=== PATIENT | female | born 1945 | race Caucasian/White ===

== ENCOUNTER 2016-11-08 13:28 | Emergency (ER) | payer OTHER ==
[~2016-11-08] VITALS: Ht 162.6 cm; Wt 66.0 kg
[~2016-11-08 13:28] MED LIST: CALC600T34 PO; CETI10 PO; ESTR1TAB12 PO; LISI-363 PO; MEDR2.5T19 PO; PRAV20 PO; PROBCAP28 PO; VITA100020 PO; VITA200017 PO
[2016-11-08 13:40] VITALS: BP 137/85; PULSE 88; RESP 16; TEMP 98.2; O2SAT 98
[2016-11-08] MEDS ORDERED: VITA100064 PO (14:13)
[2016-11-08] MEDS ORDERED: CYAN1TAB24 PO (14:13)
[2016-11-08] MEDS ORDERED: PRAV20TA2 PO (14:13)
[2016-11-08] MEDS ORDERED: CALC600T25 PO (14:13)
[2016-11-08] MEDS ORDERED: LACTCAP8 PO (14:13)
[2016-11-08] MEDS ORDERED: BUSP10TA PO (14:13)
[2016-11-08] MEDS ORDERED: LISI-515 PO (14:13)
[2016-11-08 14:38] LABS: BASOPHIL % 0.4 % (0.0-2.0); EOSINOPHIL # 0.1 TH/MM3 (0-0.4); EOSINOPHIL % 0.9 % (0.0-4.0); HEMATOCRIT 41.5 % (35.0-46.0); LYMPH % 9.6 % (9.0-44.0); LYMPHOCYTE # 0.7 TH/MM3 (1.0-4.8); MEAN CORPUSCULAR HEMOGLOBIN 31.3 PG (27.0-34.0); MONO % 7.1 % (0.0-8.0); PLATELET COUNT 209 TH/MM3 (150-450); RED BLOOD COUNT 4.51 MIL/MM3 (4.00-5.30); WHITE BLOOD COUNT 7.3 TH/MM3 (4.0-11.0)
--- NOTE | 2016-11-08 14:43 | PD ---
HPI Chief Complaint: Hypertension Time Seen by Provider: 14:21 Travel History International Travel<30 days: No Contact w/Intl Traveler<30days: No Traveled to known affect area: No History of Present Illness HPI PATIENT HAS BEEN FEELING LIGHTHEADED FOR DAYS , DENIES MAURO/CP/ABD PAIN/N/V/D/ COUGH/URI SX....STATES THAT LIGHTHEADEDNESS IS WORSE WHENEVER SHE STANDS UP. PFSH Past Medical History Anxiety: Yes Cardiovascular Problems: Yes (HTN) High Cholesterol: Yes Diminished Hearing: No Hypertension: Yes Kidney Stones: Yes Tetanus Vaccination: > 5 Years Influenza Vaccination: Yes ?: Not Menopausal: Yes : 2 Para: 2 Tubal Ligation: Yes Past Surgical History Section: Yes (X's 2) Other Surgery: Yes (RIGHT EAR PINNED BACK, BLEPHERECTOMY: BILATERAL) Social History Alcohol Use: No Tobacco Use: No Substance Use: No Allergies-Medications (Allergen,Severity, Reaction): Coded Allergies: No Known Allergies (Verified , 11/08/16) Reported Meds & Prescriptions Reported Meds & Active Scripts Active Reported Buspirone (Buspirone HCl) 10 Mg Tab 10 Mg PO BID PRN Calcium (Calcium Carbonate) 600 Mg Tab 1 Tab PO BID Probiotic (Lactobacillus Acidophilus) 1 Cap Cap 1 Cap PO DAILY B12 (Cyanocobalamin) 1,000 Mcg Tab 1 Tab PO DIRECTED Vitamin D (Cholecalciferol) 1,000 Unit Tab 2,000 Units PO DIRECTED Pravastatin 20 Mg Tab 20 Mg PO DAILY Lisinopril 20 Mg Tab 20 Mg PO DAILY Review of Systems Except as stated in HPI: all other systems reviewed are Neg HENT: Positive: Lightheadedness Physical Exam Narrative GENERAL: SKIN: Warm and dry. HEAD: Atraumatic. Normocephalic. EYES: Pupils equal and round. No scleral icterus. No injection or drainage. LATERAL FATIGUING NYSTAGMUS NOTED ENT: No nasal bleeding or discharge. Mucous membranes pink and moist. BILATERAL TM EFFUSION NOTED WITHOUT ANY E/O INFECTION NECK: Trachea midline. No JVD. CARDIOVASCULAR: Regular rate and rhythm. RESPIRATORY: No accessory muscle use. Clear to auscultation. Breath sounds equal bilaterally. GASTROINTESTINAL: Abdomen soft, non-tender, nondistended. Hepatic and splenic margins not palpable. MUSCULOSKELETAL: Extremities without clubbing, cyanosis, or edema. No obvious deformities. NEUROLOGICAL: Awake and alert. No obvious cranial nerve deficits. Motor grossly within normal limits. Five out of 5 muscle strength in the arms and legs. Normal speech. PSYCHIATRIC: Appropriate mood and affect; insight and judgment normal. Data Data Last Documented VS Vital Signs Date Time Temp Pulse Resp B/P Pulse Ox O2 Delivery O2 Flow Rate FiO2 11/08/16 15:14 85 16 145/71 98 Room Air 11/08/16 13:40 98.2 Orders Electrocardiogram (11/08/16 14:21) Complete Blood Count With Diff (11/08/16 14:21) Basic Metabolic Panel (Bmp) (11/08/16 14:21) Troponin I (11/08/16 14:21) B-Type Natriuretic Peptide (11/08/16 14:21) Prothrombin Time / Inr (Pt) (11/08/16 14:21) Act Partial Throm Time (Ptt) (11/08/16 14:21) Lipase (11/08/16 14:21) Thyroid Stimulating Hormone (11/08/16 14:21) Chest, Single Ap (11/08/16 14:21) Urinalysis - C+S If Indicated (11/08/16 15:31) Labs Laboratory Tests Test 11/08/16 11/08/16 14:30 15:30 White Blood Count 7.3 TH/MM3 Red Blood Count 4.51 MIL/MM3 Hemoglobin 14.1 GM/DL Hematocrit 41.5 % Mean Corpuscular Volume 92.0 FL Mean Corpuscular Hemoglobin 31.3 PG Mean Corpuscular Hemoglobin 34.0 % Concent Red Cell Distribution Width 12.0 % Platelet Count 209 TH/MM3 Mean Platelet Volume 7.5 FL Neutrophils (%) (Auto) 82.0 % Lymphocytes (%) (Auto) 9.6 % Monocytes (%) (Auto) 7.1 % Eosinophils (%) (Auto) 0.9 % Basophils (%) (Auto) 0.4 % Neutrophils # (Auto) 6.0 TH/MM3 Lymphocytes # (Auto) 0.7 TH/MM3 Monocytes # (Auto) 0.5 TH/MM3 Eosinophils # (Auto) 0.1 TH/MM3 Basophils # (Auto) 0.0 TH/MM3 CBC Comment DIFF FINAL Differential Comment Prothrombin Time 12.8 SEC Prothromb Time International 1.2 RATIO Ratio Activated Partial 30.1 SEC Thromboplast Time Sodium Level 144 MEQ/L Potassium Level 3.5 MEQ/L Chloride Level 108 MEQ/L Carbon Dioxide Level 27.5 MEQ/L Anion Gap 9 MEQ/L Blood Urea Nitrogen 9 MG/DL Creatinine 0.61 MG/DL Estimat Glomerular Filtration 97 ML/MIN Rate Random Glucose 88 MG/DL Calcium Level 9.0 MG/DL Troponin I LESS THAN 0.02 NG/ML B-Type Natriuretic Peptide 11 PG/ML Lipase 127 U/L Thyroid Stimulating Hormone 0.648 uIU/ML 3rd Gen Urine Collection Type CLEAN CATCH Urine Color STRAW Urine Turbidity CLEAR Urine pH 6.5 Urine Specific [place] 1.003 Urine Protein NEG mg/dL Urine Glucose (UA) NEG mg/dL Urine Ketones TRACE mg/dL Urine Occult Blood SMALL Urine Nitrite NEG Urine Bilirubin NEG Urine Leukocyte Esterase NEG Urine WBC 0-2 /hpf Urine Squamous Epithelial 0-5 /hpf Cells Microscopic Urinalysis Comment CULT NOT INDICATED MDM Medical Decision Making Medical Screen Exam Complete: Yes Emergency Medical Condition: Yes Medical Record Reviewed: Yes Differential Diagnosis ANEMIA V DEHYDRATION V VERTIGO EAR SOURCE Narrative Course NO E/O DEHYDRATION, ELECTROLYTE DISTURBANCE OR ANEMIA ON EVALUATION. PT IS NOW CALMER AND BP HAVE BEEN WNL WELL. Diagnosis Primary Impression: VERTIGO DUE TO EAR EFFUSION Referrals: Chilo Arroyo MD Patient Instructions: Benign Paroxysmal Positional Vertigo (ED), General Instructions Additional Instructions: PLEASE USE PLAIN MUCINEX OVER THE COUNTER DAILY FOR ABOUT 7 DAYS AND USE THE STRAW TECHNIQUE TO ATTEMPT AND NATURALLY DRAIN YOUR MIDDLE EAR FROM FLUID AND THIS SHOULD IMPROVE YOUR LIGHTHEADEDNESS. ALSO MAKE APPOINTMENT WITH DR ARROYO ( ENT) FOR FURTHER CARE Disposition: 01 DISCHARGE HOME Condition: Stable Karlos Quan MD Nov 08, 2016 14:43
[2016-11-08 14:44] LABS: HEMO FLAGS DIFF FINAL
[2016-11-08 14:46] LABS: CHLORIDE 108 MEQ/L (98-107); POTASSIUM 3.5 MEQ/L (3.5-5.1); SODIUM (NA) 144 MEQ/L (136-145)
[2016-11-08 14:49] LABS: ANION GAP 9 MEQ/L (5-15); BICARBONATE 27.5 MEQ/L (21.0-32.0); BLOOD UREA NITROGEN 9 MG/DL (7-18)
[2016-11-08 14:52] LABS: APTT (PATIENT) 30.1 SEC (24.3-30.1); GLOMERULAR FILTRATION RATE 97 ML/MIN (>89); INTERNATIONAL NORMALIZED RATIO 1.2 RATIO; PROTHROMBIN TIME - PATIENT 12.8 SEC (9.8-11.6)
--- NOTE | 2016-11-08 14:52 | RADRPT ---
EXAM DATE/TIME: 11/08/2016 14:37 [facility] COMPARISON: No previous studies available for comparison. INDICATIONS : Palpitations, high BP, tingling down both arms MEDICAL HISTORY : Hypertension. SURGICAL HISTORY : None. ENCOUNTER: Initial ACUITY: 1 month PAIN SCORE: 0/10 LOCATION: Bilateral chest FINDINGS: A single view of the chest demonstrates the lungs to be symmetrically aerated without evidence of mas s, infiltrate or effusion. The cardiomediastinal contours are unremarkable. Osseous structures are intact. CONCLUSION: No acute disease. Gavin Sanchez MD on November 08, 2016 at 14:50 Board Certified Radiologist. This report was verified electronically.
[2016-11-08 15:14] VITALS: BP 145/71; PULSE 85; RESP 16; O2SAT 98
[2016-11-08 15:40] LABS: BLOOD, URINE SMALL (NEG); GLUCOSE,URINE NEG (NEG); KETONE, URINE TRACE mg/dL (NEG); NITRITE,URINE NEG (NEG); PH, URINE 6.5 (5.0-8.5)
[2016-11-08 15:41] LABS: METHOD OF COLLECTION CLEAN CATCH; URINE COLOR STRAW (YELLW/STRAW)
[2016-11-08 15:45] LABS: COMMENT (UR) CULT NOT INDICATED; CULTURE IF INDICATED CULT NOT INDICATED; SQUAMOUS EPITHELIAL CELL URINE 0-5 /hpf (0-5); WBC, URINE 0-2 /hpf (0-5)
--- NOTE | 2016-11-09 11:52 | EKG ---
Date Performed: 11/08/2016 Time Performed: 14:48:50 PTAGE: 71 years EKG: Sinus rhythm Since previous tracing, no significant change noted NORMAL ECG PREVIOUS TRACING : 03/13/2016 01.01 DOCTOR: Osiel Watt Interpretating Date/Time 11/09/2016 11:50:18
== END 2016-11-08 16:04 | disposition home or self-care (01) ==
LOC: PHED 13:28
DX: H92.13 Otorrhea, bilateral (principal); I10 Essential (primary) hypertension; R42 Dizziness and giddiness
CPT/HCPCS: 71010; 80048; 81001; 83690; 83880; 84443; 84484; 85025; 85610; 85730; 93005; 99285

== ENCOUNTER 2016-11-16 20:28 | Emergency (ER) | payer OTHER ==
[~2016-11-16 20:28] MED LIST changes: +BUSP10TA PO; +CALC600T25 PO; -CALC600T34 PO; -CETI10 PO; +CYAN1TAB24 PO; -ESTR1TAB12 PO; +LACTCAP8 PO; -LISI-363 PO; +LISI-515 PO; -MEDR2.5T19 PO; -PRAV20 PO; +PRAV20TA2 PO; -PROBCAP28 PO; -VITA100020 PO; +VITA100064 PO; -VITA200017 PO
[2016-11-16 20:41] VITALS: BP 188/78; PULSE 120; RESP 18; TEMP 98.5; O2SAT 97
[2016-11-16 20:43] VITALS: BP 161/83; PULSE 117; O2SAT 95
[2016-11-16] MEDS ORDERED: AMOX500C PO (20:50)
[2016-11-16] MEDS ORDERED: PRED10 PO (20:50)
--- NOTE | 2016-11-16 20:58 | PD ---
HPI Chief Complaint: Cardiac Complaint Time Seen by Provider: 20:47 Travel History International Travel<30 days: No Contact w/Intl Traveler<30days: No Traveled to known affect area: No History of Present Illness HPI 71-year-old female here for evaluation of tachycardia, palpitations, tingling in her arms, feeling anxious. Patient reports that for the last month she has been having intermittent episodes of dizziness. She has been taking Mucinex for the last week for possible ear effusion. She went to an urgent care facility yesterday and was started on a Z-Lele and amoxicillin. The patient was also instructed to take Sudafed which she has not done. She denies fevers or chills. No chest pain or dyspnea. She does admit to feeling somewhat anxious. PFSH Past Medical History Anxiety: Yes Cardiovascular Problems: Yes (HTN) High Cholesterol: Yes Diminished Hearing: No Hypertension: Yes Kidney Stones: Yes Immunizations Current: Yes (SHINGLES 2014) Tetanus Vaccination: < 5 Years Influenza Vaccination: Yes ?: Not Menopausal: Yes : 2 Para: 2 Tubal Ligation: Yes Past Surgical History Section: Yes (X's 2) Other Surgery: Yes (RIGHT EAR PINNED BACK, BLEPHERECTOMY: BILATERAL) Social History Alcohol Use: No Tobacco Use: No Substance Use: No Allergies-Medications (Allergen,Severity, Reaction): Coded Allergies: No Known Allergies (Verified , 11/16/16) Reported Meds & Prescriptions Reported Meds & Active Scripts Active Reported Prednisone 10 Mg Tab 10 Mg PO DAILY Amoxicillin 500 Mg Cap 500 Mg PO BID Buspirone (Buspirone HCl) 10 Mg Tab 10 Mg PO BID PRN Calcium (Calcium Carbonate) 600 Mg Tab 1 Tab PO BID Probiotic (Lactobacillus Acidophilus) 1 Cap Cap 1 Cap PO DAILY B12 (Cyanocobalamin) 1,000 Mcg Tab 1 Tab PO DIRECTED Vitamin D (Cholecalciferol) 1,000 Unit Tab 2,000 Units PO DIRECTED Pravastatin 20 Mg Tab 20 Mg PO DAILY Lisinopril 20 Mg Tab 20 Mg PO DAILY Review of Systems Except as stated in HPI: all other systems reviewed are Neg Physical Exam Narrative GENERAL: Well-developed, well-nourished, comfortable, no acute distress. SKIN: Focused skin assessment warm/dry. No rash. No pallor. HEAD: Atraumatic. Normocephalic. EYES: Pupils equal and round. No scleral icterus. No injection or drainage. ENT: Mucous membranes pink and dry. Bilateral tympanic membranes and external auditory canals are normal. NECK: Trachea midline. No JVD. CARDIOVASCULAR: Tachycardic, rate 120, regular. RESPIRATORY: No accessory muscle use. Clear to auscultation. Breath sounds equal bilaterally. GASTROINTESTINAL: Abdomen soft, non-tender, nondistended. MUSCULOSKELETAL: No obvious deformities. No clubbing. No cyanosis. No edema. NEUROLOGICAL: Awake and alert. No obvious cranial nerve deficits. Motor grossly within normal limits. Normal speech. PSYCHIATRIC: Appropriate mood and affect; insight and judgment normal. Data Data Last Documented VS Vital Signs Date Time Temp Pulse Resp B/P Pulse Ox O2 Delivery O2 Flow Rate FiO2 11/16/16 22:10 92 16 97 Room Air 11/16/16 21:36 138/70 11/16/16 20:41 98.5 Orders Electrocardiogram (11/16/16 20:55) Ckmb (Isoenzyme) Profile (11/16/16 20:55) Complete Blood Count With Diff (11/16/16 20:55) Comprehensive Metabolic Panel (11/16/16 20:55) Magnesium (Mg) (11/16/16 20:55) Prothrombin Time / Inr (Pt) (11/16/16 20:55) Act Partial Throm Time (Ptt) (11/16/16 20:55) Troponin I (11/16/16 20:55) Chest, Single Ap (11/16/16 20:55) Ecg Monitoring (11/16/16 20:55) Iv Access Insert/Monitor (11/16/16 20:55) Oximetry (11/16/16 20:55) Sodium Chloride 0.9% Flush (Ns Flush) (11/16/16 21:00) Sodium Chlor 0.9% 1000 Ml Inj (Ns 1000 M (11/16/16 21:00) Lorazepam Inj (Ativan Inj) (11/16/16 21:00) Thyroid Stimulating Hormone (11/16/16 21:38) Free Thyroxine (T4) (11/16/16 21:38) Labs Laboratory Tests Test 11/16/16 20:55 White Blood Count 11.5 TH/MM3 Red Blood Count 4.52 MIL/MM3 Hemoglobin 14.2 GM/DL Hematocrit 42.4 % Mean Corpuscular Volume 93.8 FL Mean Corpuscular Hemoglobin 31.5 PG Mean Corpuscular Hemoglobin 33.5 % Concent Red Cell Distribution Width 12.5 % Platelet Count 230 TH/MM3 Mean Platelet Volume 8.4 FL Neutrophils (%) (Auto) 87.7 % Lymphocytes (%) (Auto) 6.3 % Monocytes (%) (Auto) 5.3 % Eosinophils (%) (Auto) 0.4 % Basophils (%) (Auto) 0.3 % Neutrophils # (Auto) 10.2 TH/MM3 Lymphocytes # (Auto) 0.7 TH/MM3 Monocytes # (Auto) 0.6 TH/MM3 Eosinophils # (Auto) 0.0 TH/MM3 Basophils # (Auto) 0.0 TH/MM3 CBC Comment DIFF FINAL Differential Comment Prothrombin Time 11.6 SEC Prothromb Time International 1.0 RATIO Ratio Activated Partial 26.8 SEC Thromboplast Time Sodium Level 143 MEQ/L Potassium Level 3.6 MEQ/L Chloride Level 108 MEQ/L Carbon Dioxide Level 24.9 MEQ/L Anion Gap 10 MEQ/L Blood Urea Nitrogen 16 MG/DL Creatinine 0.91 MG/DL Estimat Glomerular Filtration 61 ML/MIN Rate Random Glucose 188 MG/DL Calcium Level 9.0 MG/DL Magnesium Level 2.2 MG/DL Total Bilirubin 0.5 MG/DL Aspartate Amino Transf 13 U/L (AST/SGOT) Alanine Aminotransferase 19 U/L (ALT/SGPT) Alkaline Phosphatase 48 U/L Total Creatine Kinase 50 U/L Troponin I LESS THAN 0.02 NG/ML Total Protein 7.0 GM/DL Albumin 3.8 GM/DL Thyroid Stimulating Hormone 0.482 uIU/ML [address] [place] [address] Medical Decision Making Medical Screen Exam Complete: Yes Emergency Medical Condition: Yes Medical Record Reviewed: Yes Interpretation(s) EKG: Sinus, rate 94, normal axis, normal intervals, no acute ischemic abnormality. Differential Diagnosis Sinus tachycardia, dehydration, anxiety, medication side effect, hyperthyroidism , anemia Narrative Course Initial vital signs show heart rate 120, blood pressure 188/70, pulse ox 97% on room air, oral temp of 98.5F. CBC shows WBC 11.5, hemoglobin 14.2, hematocrit 42.4, platelets 230, neutrophils 87.7%. CMP is remarkable for random glucose 188, otherwise essentially unremarkable. Cardiac enzymes are negative. TSH is 0.482. Patient was made aware of all findings. She is resting comfortably. She was given a dose of IV Ativan and reports feeling significant improvement. Her heart rate has improved to 91. She had no chest pain or dyspnea at all today. Her symptoms could also be secondary to beginning oral prednisone yesterday as well as her anxiety. She denies suicidal or homicidal ideation. Patient will be discharged home with a prescription for Ativan. She has a follow-up with her primary care physician in 4 days. She is stable for discharge home with outpatient follow-up. She was informed on when to return to the emergency department patient verbalizes understanding and agreement with plan. Diagnosis Primary Impression: Anxiety Additional Impression: Sinus tachycardia Referrals: Primary Care Physician 3 days Additional Instructions: Follow-up with your primary care physician as scheduled on . Return to the emergency department for worsening symptoms or any other concerns as discussed. Scripts Lorazepam (Ativan)0.5 Mg Tab0.5 Mg PO Q8H PRN (ANXIETY AND/OR AGITATION) #12 TAB Ref 0 Prov:Kendall Billingsley MD 11/16/16 Disposition: 01 DISCHARGE HOME Condition: Stable Kendall Billingsley MD Nov 16, 2016 20:58
[2016-11-16] MEDS ORDERED: SODIUM CHLOR 0.9% 1000 ML INJ 1,000 ML IV ONE (21:00)
[2016-11-16] MEDS ORDERED: SODIUM CHLORIDE 0.9% FLUSH 10 ML FLUSH IVF PRN (21:00)
[2016-11-16] MEDS ORDERED: LORazepam 2 MG/ML VIAL IV PUSH ONE (21:00)
[2016-11-16 21:19] LABS: AUTOMATED NEUTROPHIL # 10.2 TH/MM3 (1.8-7.7); BASOPHIL % 0.3 % (0.0-2.0); EOSINOPHIL % 0.4 % (0.0-4.0); HEMATOCRIT 42.4 % (35.0-46.0); LYMPH % 6.3 % (9.0-44.0); LYMPHOCYTE # 0.7 TH/MM3 (1.0-4.8); MEAN CELL VOLUME 93.8 FL (80.0-100.0); MEAN CORPUSCULAR HEMOGLOBIN 31.5 PG (27.0-34.0); MEAN CORPUSCULAR HGB CONC 33.5 % (32.0-36.0); MONO % 5.3 % (0.0-8.0); NEUT % 87.7 % (16.0-70.0); PLATELET COUNT 230 TH/MM3 (150-450); RED BLOOD COUNT 4.52 MIL/MM3 (4.00-5.30); RED CELL DISTRIBUTION WIDTH 12.5 % (11.6-17.2); WHITE BLOOD COUNT 11.5 TH/MM3 (4.0-11.0)
--- NOTE | 2016-11-16 21:24 | RADRPT ---
EXAM DATE/TIME: 11/16/2016 20:59 [facility] COMPARISON: CHEST SINGLE AP, November 08, 2016, 14:37. INDICATIONS : Chest pain. MEDICAL HISTORY : Hypertension. SURGICAL HISTORY : None. ENCOUNTER: Initial ACUITY: 1 day PAIN SCORE: 3/10 LOCATION: Bilateral chest FINDINGS: A single view of the chest demonstrates the lungs to be symmetrically aerated without evidence of mas s, infiltrate or effusion. The cardiomediastinal contours are unremarkable. Osseous structures are intact. CONCLUSION: No acute disease. Gavin Sanchez MD on November 16, 2016 at 21:21 Board Certified Radiologist. This report was verified electronically.
[2016-11-16 21:27] LABS: CHLORIDE 108 MEQ/L (98-107); POTASSIUM 3.6 MEQ/L (3.5-5.1); SODIUM (NA) 143 MEQ/L (136-145)
[2016-11-16 21:28] LABS: HEMO FLAGS DIFF FINAL
[2016-11-16 21:31] LABS: ANION GAP 10 MEQ/L (5-15); BICARBONATE 24.9 MEQ/L (21.0-32.0); BLOOD UREA NITROGEN 16 MG/DL (7-18); MAGNESIUM 2.2 MG/DL (1.5-2.5)
[2016-11-16 21:34] LABS: ALT (GPT) 19 U/L (10-53); APTT (PATIENT) 26.8 SEC (24.3-30.1); AST (GOT) 13 U/L (15-37); GLOMERULAR FILTRATION RATE 61 ML/MIN (>89); PROTHROMBIN TIME - PATIENT 11.6 SEC (9.8-11.6)
[2016-11-16 21:35] LABS: TOTAL BILIRUBIN ADULT 0.5 MG/DL (0.2-1.0)
[2016-11-16 21:36] VITALS: BP 138/70; PULSE 96; RESP 16; O2SAT 95
[2016-11-16 21:37] LABS: ALKALINE PHOSPHATASE 48 U/L (45-117)
[2016-11-16 21:42] LABS: CREATINE KINASE 50 U/L (26-192)
[2016-11-16 22:10] VITALS: PULSE 92; RESP 16; O2SAT 97
[2016-11-16] MEDS ORDERED: LORA-392 PO (22:40)
[2016-11-16 23:06] VITALS: BP 132/70; PULSE 87; RESP 16; O2SAT 99
[2016-11-16 23:28] LABS: FREE T4 1.05 NG/DL (0.76-1.46)
--- NOTE | 2016-11-17 14:37 | EKG ---
Date Performed: 11/16/2016 Time Performed: 21:19:09 PTAGE: 71 years EKG: Sinus rhythm Since previous tracing, no significant change noted NORMAL ECG PREVIOUS TRACING : 11/08/2016 14.48 DOCTOR: Myles Hines Interpretating Date/Time 11/17/2016 14:35:43
== END 2016-11-16 23:12 | disposition home or self-care (01) ==
LOC: PHED 20:28
DX: F41.9 Anxiety disorder, unspecified (principal); R00.0 Tachycardia, unspecified; R00.2 Palpitations; R20.2 Paresthesia of skin; I10 Essential (primary) hypertension; E78.00 Pure hypercholesterolemia, unspecified; Z86.79 Personal history of other diseases of the circulatory system; Z87.442 Personal history of urinary calculi; Z86.59 Personal history of other mental and behavioral disorders
CPT/HCPCS: 71010; 80053; 82550; 83735; 84439; 84443; 84484; 85025; 85610; 85730; 93005; 96361; 96374; 99285; J2060; J7030

== ENCOUNTER 2017-02-16 20:17 | Emergency (ER) | payer OTHER ==
[~2017-02-16] VITALS: Ht 162.6 cm; Wt 67.1 kg
[~2017-02-16 20:17] MED LIST changes: +AMOX500C PO; +LORA-392 PO; +PRED10 PO
[2017-02-16 20:19] VITALS: BP 188/86; PULSE 125; RESP 18; TEMP 97.5; O2SAT 98
[2017-02-16 20:40] VITALS: BP 188/86; PULSE 125; RESP 18; TEMP 97.5; O2SAT 98
[2017-02-16 21:00] VITALS: BP_SYST 155; BP_SYST 166; BP_DIAS 74; BP_DIAS 85
[2017-02-16] MEDS ORDERED: SODIUM CHLORIDE 0.9% FLUSH 10 ML FLUSH IVF PRN (21:00)
[2017-02-16] MEDS ORDERED: ASPIRIN 81 MG CHEW TAB CHEW ONE (21:00)
[2017-02-16 21:41] VITALS: BP 135/72; PULSE 101; RESP 20
[2017-02-16 21:41] LABS: AUTOMATED NEUTROPHIL # 9.6 TH/MM3 (1.8-7.7); BASOPHIL % 0.4 % (0.0-2.0); EOSINOPHIL # 0.1 TH/MM3 (0-0.4); EOSINOPHIL % 1.3 % (0.0-4.0); HEMATOCRIT 41.7 % (35.0-46.0); HEMO FLAGS DIFF FINAL; LYMPHOCYTE # 0.4 TH/MM3 (1.0-4.8); MEAN CELL VOLUME 90.6 FL (80.0-100.0); MEAN CORPUSCULAR HEMOGLOBIN 30.7 PG (27.0-34.0); MEAN CORPUSCULAR HGB CONC 33.9 % (32.0-36.0); MONO % 5.7 % (0.0-8.0); NEUT % 88.6 % (16.0-70.0); PLATELET COUNT 231 TH/MM3 (150-450); RED CELL DISTRIBUTION WIDTH 12.2 % (11.6-17.2); WHITE BLOOD COUNT 10.7 TH/MM3 (4.0-11.0)
[2017-02-16 21:57] LABS: CHLORIDE 103 MEQ/L (98-107); POTASSIUM 3.7 MEQ/L (3.5-5.1); SODIUM (NA) 137 MEQ/L (136-145)
[2017-02-16 22:00] LABS: ANION GAP 8 MEQ/L (5-15); BICARBONATE 26.5 MEQ/L (21.0-32.0); MAGNESIUM 2.3 MG/DL (1.5-2.5)
[2017-02-16 22:01] LABS: BLOOD UREA NITROGEN 17 MG/DL (7-18)
[2017-02-16 22:03] LABS: APTT (PATIENT) 30.8 SEC (24.3-30.1); PROTHROMBIN TIME - PATIENT 11.4 SEC (9.8-11.6)
[2017-02-16 22:04] LABS: GLOMERULAR FILTRATION RATE 83 ML/MIN (>89)
[2017-02-16 22:16] LABS: CREATINE KINASE 49 U/L (26-192)
--- NOTE | 2017-02-16 22:18 | RADRPT ---
EXAM DATE/TIME: 02/16/2017 21:06 [facility] COMPARISON: CHEST SINGLE AP, November 16, 2016, 20:59. INDICATIONS : Chest pain. MEDICAL HISTORY : Hypertension. SURGICAL HISTORY : None. ENCOUNTER: Initial ACUITY: 1 day PAIN SCORE: 3/10 LOCATION: Bilateral chest FINDINGS: A single view of the chest demonstrates the lungs to be symmetrically aerated without evidence of mas s, infiltrate or effusion. The cardiomediastinal contours are unremarkable. Osseous structures are intact. CONCLUSION: Normal examination. Gavin Sanchez MD on February 16, 2017 at 22:17 Board Certified Radiologist. This report was verified electronically.
--- NOTE | 2017-02-16 23:20 | PD ---
HPI Chief Complaint: Cardiac Complaint Time Seen by Provider: 21:00 Travel History International Travel<30 days: No Contact w/Intl Traveler<30days: No Traveled to known affect area: No History of Present Illness HPI 71-year-old female presents to the emergency department for complaint of palpitations and heart racing. Patient states that she has a prescription for muscle relaxant use muscle relaxant last night. Shortly after using muscle relaxant she went to bed but felt slightly weak and then awakened this morning feeling weak with palpitations. Patient also noted to have lightheadedness. Patient did take for evening medications and morning medications for cholesterol and hypertension. Due to ongoing sensation of fast heartbeat and palpitations patient states became anxious and took a Klonopin. Symptoms did not seem temperature comes to the emergency room for evaluation. No chest pain no shortness of breath no sweats no near-syncope or syncope. Patient denies any abdominal pain. No recent febrile illness. Patient unable to identify exacerbating or alleviating factors. PFSH Past Medical History Narrative Medical Hypertension dyslipidemia anxiety kidney stones shingles ear surgery; no tobacco use alcohol use; nursing notes reviewed Anxiety: Yes Cardiovascular Problems: Yes (HTN) High Cholesterol: Yes Diminished Hearing: No Hypertension: Yes Kidney Stones: Yes Immunizations Current: Yes (SHIN2014) Tetanus Vaccination: Unknown Menopausal: Yes : 2 Para: 2 Tubal Ligation: Yes Past Surgical History Surgical History: No Previous Surgery Section: Yes (X's 2) Other Surgery: Yes (RIGHT EAR PINNED BACK, BLEPHERECTOMY: BILATERAL) Social History Alcohol Use: No Tobacco Use: No Substance Use: No Allergies-Medications (Allergen,Severity, Reaction): Coded Allergies: No Known Allergies (Verified , 11/16/16) Reported Meds & Prescriptions Reported Meds & Active Scripts Active Ativan (Lorazepam) 0.5 Mg Tab 0.5 Mg PO Q8H PRN Reported Prednisone 10 Mg Tab 10 Mg PO DAILY Amoxicillin 500 Mg Cap 500 Mg PO BID Buspirone (Buspirone HCl) 10 Mg Tab 10 Mg PO BID PRN Calcium (Calcium Carbonate) 600 Mg Tab 1 Tab PO BID Probiotic (Lactobacillus Acidophilus) 1 Cap Cap 1 Cap PO DAILY B12 (Cyanocobalamin) 1,000 Mcg Tab 1 Tab PO DIRECTED Vitamin D (Cholecalciferol) 1,000 Unit Tab 2,000 Units PO DIRECTED Pravastatin 20 Mg Tab 20 Mg PO DAILY Lisinopril 20 Mg Tab 20 Mg PO DAILY Review of Systems Except as stated in HPI: all other systems reviewed are Neg General / Constitutional: No: Fever, Chills HENT: No: Congestion Cardiovascular: Positive: Palpitations, Tachycardia, No: Chest Pain or Discomfort, Diaphoresis Respiratory: No: Shortness of Breath Gastrointestinal: No: Nausea, Vomiting, Abdominal Pain Genitourinary: No: Flank Pain Musculoskeletal: No: Myalgias, Arthralgias Skin: No Rash Neurologic: No: Weakness Psychiatric: Positive: Anxiety Hematologic/Lymphatic: No: Lymph Node Enlargement Physical Exam Narrative GENERAL: Well-developed well-nourished female in no acute distress no respiratory distress SKIN: Warm and dry. HEAD: Normocephalic. EYES: No scleral icterus. No injection or drainage. NECK: Supple, trachea midline. No JVD or lymphadenopathy. CARDIOVASCULAR: Regular rate and rhythm without murmurs, gallops, or rubs. RESPIRATORY: Breath sounds equal bilaterally. No accessory muscle use. GASTROINTESTINAL: Abdomen soft, non-tender, nondistended. MUSCULOSKELETAL: No cyanosis, or edema. BACK: Nontender without obvious deformity. No CVA tenderness. Data Data Last Documented VS Orders Orders Electrocardiogram (02/16/17 21:00) Basic Metabolic Panel (Bmp) (02/16/17 21:00) Ckmb (Isoenzyme) Profile (02/16/17 21:00) Complete Blood Count With Diff (02/16/17 21:00) Magnesium (Mg) (02/16/17:00) Prothrombin Time / Inr (Pt) (02/16/17:00) Act Partial Throm Time (Ptt) (02/16/17 21:00) Troponin I (02/16/17:00) Chest, Single Ap (02/16/17 21:00) Ecg Monitoring (02/16/17:00) Bilateral Bp Monitoring (02/16/17:00) Iv Access Insert/Monitor (02/16/17 21:00) Oximetry (02/16/17 21:00) Oxygen Administration (02/16/17 21:00) Sodium Chloride 0.9% Flush (Ns Flush) (02/16/17 21:00) Thyroid Stimulating Hormone (02/16/17 21:00) Aspirin Chew (Aspirin Chew) (02/16/17 21:00) Labs Laboratory Tests Test 02/16/17 21:25 White Blood Count 10.7 TH/MM3 Red Blood Count 4.60 MIL/MM3 Hemoglobin 14.1 GM/DL Hematocrit 41.7 % Mean Corpuscular Volume 90.6 FL Mean Corpuscular Hemoglobin 30.7 PG Mean Corpuscular Hemoglobin Concent 33.9 % Red Cell Distribution Width 12.2 % Platelet Count 231 TH/MM3 Mean Platelet Volume 8.1 FL Neutrophils (%) (Auto) 88.6 % Lymphocytes (%) (Auto) 4.0 % Monocytes (%) (Auto) 5.7 % Eosinophils (%) (Auto) 1.3 % Basophils (%) (Auto) 0.4 % Neutrophils # (Auto) 9.6 TH/MM3 Lymphocytes # (Auto) 0.4 TH/MM3 Monocytes # (Auto) 0.6 TH/MM3 Eosinophils # (Auto) 0.1 TH/MM3 Basophils # (Auto) 0.0 TH/MM3 CBC Comment DIFF FINAL Differential Comment Prothrombin Time 11.4 SEC Prothromb Time International Ratio 1.0 RATIO Activated Partial Thromboplast Time 30.8 SEC Blood Urea Nitrogen 17 MG/DL Creatinine 0.70 MG/DL Random Glucose 131 MG/DL Calcium Level 9.4 MG/DL Magnesium Level 2.3 MG/DL Sodium Level 137 MEQ/L Potassium Level 3.7 MEQ/L Chloride Level 103 MEQ/L Carbon Dioxide Level 26.5 MEQ/L Anion Gap 8 MEQ/L Estimat Glomerular Filtration Rate 83 ML/MIN Total Creatine Kinase 49 U/L Troponin I LESS THAN 0.02 NG/ML Thyroid Stimulating Hormone 3rd Gen 0.451 uIU/ML [facility] Medical Decision Making Medical Screen Exam Complete: Yes Emergency Medical Condition: Yes Medical Record Reviewed: Yes Interpretation(s) EKG sinus tachycardia rate [address] elevation or injury pattern or ectopy noted CBC is automated differential grossly within normal limits Troponin I less than 0.02, not elevated CK 49 not elevated TSH 0.451 not elevated Last Impressions Chest X-Ray 02/16/[id number] Signed Impressions: Service Date/Time: Thursday, February 16, 2017 21:06 - CONCLUSION: Normal examination. 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 Diagnosis Primary Impression: Palpitations Additional Impression: Adverse drug reaction Qualified Codes: T88.7XXA - Unspecified adverse effect of drug or medicament, initial encounter Referrals: Primary Care Physician call for appointment Patient Instructions: General Instructions Additional Instructions: Increase fluid hydration Keep appointment as scheduled with provider/specialist Return to the emergency department for any concerns or change in condition recommend not using muscle relaxants/Flexeril in the future Med/Other Pt SpecificInfo: No Change to Meds Disposition: 01 DISCHARGE HOME Condition: Stable Kymberly Lazo MD Feb 16, 2017 23:20
--- NOTE | 2017-02-17 08:13 | EKG ---
Date Performed: 02/16/2017 Time Performed: 20:55:49 PTAGE: 71 years EKG: SINUS TACHYCARDIA ABNORMAL RHYTHM ECG Compared to prior tracing no significant change PREVIOUS TRACING : 11/16/2016 21.19 DOCTOR: Kennedi Ewing Interpretating Date/Time 02/17/2017 08:11:04
== END 2017-02-16 23:35 | disposition home or self-care (01) ==
LOC: PHED 20:17
DX: R00.2 Palpitations (principal); T88.7XXA Unspecified adverse effect of drug or medicament, initial encounter; I10 Essential (primary) hypertension; Z79.899 Other long term (current) drug therapy; R94.31 Abnormal electrocardiogram [ECG] [EKG]
CPT/HCPCS: 71010; 80048; 82550; 83735; 84443; 84484; 85025; 85610; 85730; 93005; 99285

== ENCOUNTER 2017-04-13 18:29 | Emergency (ER) | payer OTHER ==
[~2017-04-13] VITALS: Ht 162.6 cm; Wt 64.5 kg
[~2017-04-13 18:29] MED LIST changes: -CALC600T25 PO; +CALC600T5 PO
[2017-04-13 18:33] VITALS: BP 162/92; PULSE 92; RESP 18; TEMP 94.2; O2SAT 96
[2017-04-13] MEDS ORDERED: SODIUM CHLOR 0.9% 1000 ML INJ 1,000 ML IV SCH (19:10)
--- NOTE | 2017-04-13 19:12 | PD ---
HPI Chief Complaint: Hypertension Time Seen by Provider: 18:55 Travel History International Travel<30 days: No Contact w/Intl Traveler<30days: No Traveled to known affect area: No History of Present Illness HPI The patient is a 71-year-old female who presents to the emergency department for abdominal discomfort of 2 weeks' duration. The patient states her last 2 weeks she's had some lower abdominal discomfort, initially described as pain, now as "tingling", located right lower quadrant. Patient was diagnosed with a UTI to her physician's office and placed on nitrofurantoin for 10 days. However, she continues to have symptoms. She denies any nausea, vomiting, diarrhea, or constipation. She does have a history of 2 previous sections. She also states that she had dizziness, they changed her antihypertensive from lisinopril to Norvasc, her dizziness resolved. She denies any change in appetite. She denies any current weight loss. She denies any associated fever, chills, or sweats. Symptoms are mild to moderate and there are no current alleviating factors. She has been taking Tylenol intermittently for her discomfort which does help with the discomfort. [facility] Past Medical History Anxiety: Yes Cardiovascular Problems: Yes (HTN) High Cholesterol: Yes Diminished Hearing: No Hypertension: Yes Kidney Stones: Yes Immunizations Current: Yes (SHAN 2014) Menopausal: Yes : 2 Para: 2 Tubal Ligation: Yes Past Surgical History Section: Yes (X's 2) Other Surgery: Yes (RIGHT EAR PINNED BACK, BLEPHERECTOMY: BILATERAL) Social History Alcohol Use: No Tobacco Use: No Substance Use: No Allergies-Medications (Allergen,Severity, Reaction): Coded Allergies: No Known Allergies (Verified Adverse Reaction, Unknown, 04/13/17) Reported Meds & Prescriptions Reported Meds & Active Scripts Active Reported Aspirin 81 (Aspirin) 81 Mg Tabdr 81 Mg PO DAILY Nitrofurantoin Macrocrystal 100 Mg Cap 100 Mg PO BID Sertraline (Sertraline HCl) 50 Mg Tab 50 Mg PO DAILY Metoprolol Succinate ER 24 HR (Metoprolol Succinate) 50 Mg Tab 50 Mg PO BID Amlodipine (Amlodipine Besylate) 5 Mg Tab 5 Mg PO DAILY Calcium (Calcium Carbonate) 600 Mg Tab 1 Tab PO BID Probiotic (Lactobacillus Acidophilus) 1 Cap Cap 1 Cap PO DAILY B12 (Cyanocobalamin) 1,000 Mcg Tab 1 Tab PO DIRECTED Vitamin D3 (Cholecalciferol) 1,000 Unit Tab 2,000 Units PO DIRECTED Pravastatin 20 Mg Tab 20 Mg PO DAILY Review of Systems Except as stated in HPI: all other systems reviewed are Neg General / Constitutional: No: Fever Cardiovascular: No: Chest Pain or Discomfort Respiratory: No: Shortness of Breath Gastrointestinal: Positive: Abdominal Pain, No: Nausea, Vomiting, Diarrhea Genitourinary: No: Dysuria Neurologic: No: Dizziness Physical Exam Narrative GENERAL: Awake, alert, pleasant 71-year-old female who appears her stated age and is in no acute respiratory distress. SKIN: Focused skin assessment warm/dry. HEAD: Atraumatic. Normocephalic. EYES: Pupils equal and round. No scleral icterus. No injection or drainage. ENT: No nasal bleeding or discharge. Mucous membranes pink and moist. NECK: Trachea midline. No JVD. CARDIOVASCULAR: Regular rate and rhythm. No murmur appreciated. RESPIRATORY: No accessory muscle use. Clear to auscultation. Breath sounds equal bilaterally. GASTROINTESTINAL: Abdomen soft, mild tenderness right lower quadrant, no rebound , guarding, rigidity. Well-healed midline scar from the umbilicus inferiorly. MUSCULOSKELETAL: No obvious deformities. No clubbing. No cyanosis. No edema. NEUROLOGICAL: Awake and alert. No obvious cranial nerve deficits. Motor grossly within normal limits. Normal speech. PSYCHIATRIC: Appropriate mood and affect; insight and judgment normal. Data Data Last Documented VS Vital Signs Date Time Temp Pulse Resp B/P (MAP) Pulse Ox O2 Delivery O2 Flow Rate FiO2 04/13/17 18:33 94.2 92 18 162/92 (115) 96 Orders Orders Complete Blood Count With Diff (04/13/17 19:10) Comprehensive Metabolic Panel (04/13/17 19:10) Lipase (04/13/17 19:10) Urinalysis - C+S If Indicated (04/13/17 19:10) Ct Abd/Pel W/O Iv Contrast (04/13/17 19:10) Iv Access Insert/Monitor (04/13/17 19:10) Ecg Monitoring (04/13/17 19:10) Oximetry (04/13/17 19:10) Sodium Chlor 0.9% 1000 Ml Inj (Ns 1000 M (04/13/17 19:10) Sodium Chloride 0.9% Flush (Ns Flush) (04/13/17 19:15) Labs Laboratory Tests Test 04/13/17 19:40 04/13/17 19:45 Urine Color YELLOW Urine Turbidity CLEAR Urine pH 6.0 Urine Specific [place] 1.005 Urine Protein NEG mg/dL Urine Glucose (UA) NEG mg/dL Urine Ketones 80 OR GREATER mg/dL Urine Occult Blood MOD Urine Nitrite NEG Urine Bilirubin NEG Urine Leukocyte Esterase NEG Urine RBC 10-14 /hpf Urine WBC 0-2 /hpf Urine Squamous Epithelial Cells 0-5 /hpf Microscopic Urinalysis Comment CULT NOT INDICATED White Blood Count 8.5 TH/MM3 Red Blood Count 4.71 MIL/MM3 Hemoglobin 14.5 GM/DL Hematocrit 42.3 % Mean Corpuscular Volume 89.8 FL Mean Corpuscular Hemoglobin 30.7 PG Mean Corpuscular Hemoglobin Concent 34.2 % Red Cell Distribution Width 11.9 % Platelet Count 345 TH/MM3 Mean Platelet Volume 8.0 FL Neutrophils (%) (Auto) 83.6 % Lymphocytes (%) (Auto) 6.5 % Monocytes (%) (Auto) 5.9 % Eosinophils (%) (Auto) 0.3 % Basophils (%) (Auto) 3.7 % Neutrophils # (Auto) 7.1 TH/MM3 Lymphocytes # (Auto) 0.6 TH/MM3 Monocytes # (Auto) 0.5 TH/MM3 Eosinophils # (Auto) 0.0 TH/MM3 Basophils # (Auto) 0.3 TH/MM3 CBC Comment DIFF FINAL Differential Comment Blood Urea Nitrogen 9 MG/DL Creatinine 0.51 MG/DL Random Glucose 108 MG/DL Total Protein 7.5 GM/DL Albumin 4.1 GM/DL Calcium Level 9.0 MG/DL Alkaline Phosphatase 31 U/L Aspartate Amino Transf (AST/SGOT) 11 U/L Alanine Aminotransferase (ALT/SGPT) 19 U/L Total Bilirubin 0.8 MG/DL Sodium Level 138 MEQ/L Potassium Level 3.5 MEQ/L Chloride Level 105 MEQ/L Carbon Dioxide Level 23.8 MEQ/L Anion Gap 9 MEQ/L Estimat Glomerular Filtration Rate 119 ML/MIN Lipase 137 U/L [facility] Medical Decision Making Medical Screen Exam Complete: Yes Emergency Medical Condition: Yes Medical Record Reviewed: Yes Interpretation(s) Laboratory Tests Test 04/13/17 19:40 04/13/17 19:45 Urine Color YELLOW Urine Turbidity CLEAR Urine pH 6.0 Urine Specific [place] 1.005 Urine Protein NEG mg/dL Urine Glucose (UA) NEG mg/dL Urine Ketones 80 OR GREATER mg/dL Urine Occult Blood MOD Urine Nitrite NEG Urine Bilirubin NEG Urine Leukocyte Esterase NEG Urine RBC 10-14 /hpf Urine WBC 0-2 /hpf Urine Squamous Epithelial Cells 0-5 /hpf Microscopic Urinalysis Comment CULT NOT INDICATED White Blood Count 8.5 TH/MM3 Red Blood Count 4.71 MIL/MM3 Hemoglobin 14.5 GM/DL Hematocrit 42.3 % Mean Corpuscular Volume 89.8 FL Mean Corpuscular Hemoglobin 30.7 PG Mean Corpuscular Hemoglobin Concent 34.2 % Red Cell Distribution Width 11.9 % Platelet Count 345 TH/MM3 Mean Platelet Volume 8.0 FL Neutrophils (%) (Auto) 83.6 % Lymphocytes (%) (Auto) 6.5 % Monocytes (%) (Auto) 5.9 % Eosinophils (%) (Auto) 0.3 % Basophils (%) (Auto) 3.7 % Neutrophils # (Auto) 7.1 TH/MM3 Lymphocytes # (Auto) 0.6 TH/MM3 Monocytes # (Auto) 0.5 TH/MM3 Eosinophils # (Auto) 0.0 TH/MM3 Basophils # (Auto) 0.3 TH/MM3 CBC Comment DIFF FINAL Differential Comment Blood Urea Nitrogen 9 MG/DL Creatinine 0.51 MG/DL Random Glucose 108 MG/DL Total Protein 7.5 GM/DL Albumin 4.1 GM/DL Calcium Level 9.0 MG/DL Alkaline Phosphatase 31 U/L Aspartate Amino Transf (AST/SGOT) 11 U/L Alanine Aminotransferase (ALT/SGPT) 19 U/L Total Bilirubin 0.8 MG/DL Sodium Level 138 MEQ/L Potassium Level 3.5 MEQ/L Chloride Level 105 MEQ/L Carbon Dioxide Level 23.8 MEQ/L Anion Gap 9 MEQ/L Estimat Glomerular Filtration Rate 119 ML/MIN Lipase 137 U/L CT the abdomen and pelvis reveals bilateral, multiple nonobstructing punctate renal calculi. No ureteric stones to explain current clinical symptoms. No hydronephrosis or nephrolithiasis. Mild diverticular disease of the sigmoid without diverticulitis. Differential Diagnosis Differential diagnosis includes diverticulitis, atypical appendicitis, UTI, pyelonephritis, medication side effect. Narrative Course IV was established, labs are drawn and sent, and the patient was placed on cardiac telemetry monitoring and continuous pulse oximetry monitoring. The patient was administered IV fluids. UA was sent to lab. Noncontrast CT of the abdomen and pelvis was performed to evaluate for possible diverticulitis with abdominal discomfort of 2 weeks' duration. The patient's white count is unremarkable. LFTs are within normal limits. Lipase is normal. The patient's UA does reveal a year greater of ketones, 10-14 RBCs, moderate blood. No evidence of underlying UTI. CT abdomen and pelvis reveals bilateral multiple nonobstructing punctate renal calculi and diverticulosis, but no diverticulitis. The patient does have painless hematuria, may need to follow- up with urology as an outpatient basis, she may benefit from outpatient cystoscopy. She does have a history of tobacco use, quit smoking 13 years ago. The patient will be provided a copy of her CT results and lab results at discharge. Diagnosis Primary Impression: Painless hematuria Patient Instructions: General Instructions Additional Instructions: Follow-up with your primary physician and/or urology if symptoms persist. Please provide the patient a copy of her CT results and lab results at discharge. Return if symptoms worsen or progress. Med/Other Pt SpecificInfo: No Change to Meds Disposition: 01 DISCHARGE HOME Condition: Stable Armani Jackson MD Apr 13, 2017 19:12
[2017-04-13] MEDS ORDERED: SODIUM CHLORIDE 0.9% FLUSH 10 ML FLUSH IV FLUSH PRN (19:15)
[2017-04-13 19:55] LABS: AUTOMATED NEUTROPHIL # 7.1 TH/MM3 (1.8-7.7); BASOPHIL # 0.3 TH/MM3 (0-0.2); BASOPHIL % 3.7 % (0.0-2.0); EOSINOPHIL % 0.3 % (0.0-4.0); HEMATOCRIT 42.3 % (35.0-46.0); LYMPH % 6.5 % (9.0-44.0); LYMPHOCYTE # 0.6 TH/MM3 (1.0-4.8); MEAN CELL VOLUME 89.8 FL (80.0-100.0); MEAN CORPUSCULAR HEMOGLOBIN 30.7 PG (27.0-34.0); MEAN CORPUSCULAR HGB CONC 34.2 % (32.0-36.0); MONO % 5.9 % (0.0-8.0); NEUT % 83.6 % (16.0-70.0); PLATELET COUNT 345 TH/MM3 (150-450); RED BLOOD COUNT 4.71 MIL/MM3 (4.00-5.30); RED CELL DISTRIBUTION WIDTH 11.9 % (11.6-17.2); WHITE BLOOD COUNT 8.5 TH/MM3 (4.0-11.0)
[2017-04-13 19:56] LABS: BLOOD, URINE MOD (NEG); GLUCOSE,URINE NEG (NEG); KETONE, URINE 80 OR GREATER mg/dL (NEG); NITRITE,URINE NEG (NEG)
[2017-04-13 19:58] LABS: HEMO FLAGS DIFF FINAL
[2017-04-13 20:03] LABS: URINE COLOR YELLOW (YELLW/STRAW)
[2017-04-13 20:03] LABS: CHLORIDE 105 MEQ/L (98-107); POTASSIUM 3.5 MEQ/L (3.5-5.1); SODIUM (NA) 138 MEQ/L (136-145)
[2017-04-13 20:05] LABS: COMMENT (UR) CULT NOT INDICATED; CULTURE IF INDICATED CULT NOT INDICATED; SQUAMOUS EPITHELIAL CELL URINE 0-5 /hpf (0-5); WBC, URINE 0-2 /hpf (0-5)
[2017-04-13 20:07] LABS: ANION GAP 9 MEQ/L (5-15); BICARBONATE 23.8 MEQ/L (21.0-32.0); BLOOD UREA NITROGEN 9 MG/DL (7-18)
[2017-04-13 20:10] LABS: ALT (GPT) 19 U/L (10-53); AST (GOT) 11 U/L (15-37); GLOMERULAR FILTRATION RATE 119 ML/MIN (>89)
[2017-04-13 20:12] LABS: TOTAL BILIRUBIN ADULT 0.8 MG/DL (0.2-1.0)
[2017-04-13 20:13] LABS: ALKALINE PHOSPHATASE 31 U/L (45-117)
[2017-04-13] MEDS ORDERED: ASPI1TAB57 PO (20:57)
[2017-04-13] MEDS ORDERED: NITR1CAP36 PO (20:57)
[2017-04-13] MEDS ORDERED: AMLO5TAB2 PO (20:57)
[2017-04-13] MEDS ORDERED: METO1TAB9 PO (20:57)
[2017-04-13] MEDS ORDERED: SERT-132 PO (20:57)
--- NOTE | 2017-04-13 21:41 | RADRPT ---
EXAM DATE/TIME: 04/13/2017 19:49 [facility] COMPARISON: CT ABDOMEN & PELVIS W/O CONTRAST, November 08, 2012, 21:17. INDICATIONS : Bilateral lower quadrant discomfort. ORAL CONTRAST: No oral contrast ingested. RADIATION DOSE: 8.73 CTDIvol (mGy) MEDICAL HISTORY : Hypertension. SURGICAL HISTORY : Tubal ligation. section. ENCOUNTER: Initial ACUITY: 2 weeks PAIN SCALE: 2/10 LOCATION: Bilateral lower quadrant TECHNIQUE: Volumetric scanning of the abdomen and pelvis was performed. Using automated exposure control and ad justment of the mA and/or kV according to patient size, radiation dose was kept as low as reasonably achievable to obtain optimal diagnostic quality images. DICOM format image data is available electro nically for review and comparison. FINDINGS: LOWER LUNGS: The visualized lower lungs are clear. LIVER: Homogeneous density without lesion. There is no dilation of the biliary tree. No calcified gallston es. SPLEEN: Normal size without lesion. PANCREAS: Within normal limits. KIDNEYS: Normal in size and shape. Punctate, bilateral nonobstructing renal calculi. Ureters are normal in bo iber throughout their length with stable bilateral pelvic phleboliths. Benign-appearing cortical cyst medially in the junction of the mid and lower pole of the right kidney. ADRENAL GLANDS: Within normal limits. VASCULAR: There is no aortic aneurysm. BOWEL/MESENTERY: The stomach, small bowel, and colon demonstrate no acute abnormality. There is no free intraperitone al air or fluid. Mild diverticular disease of the sigmoid without diverticulitis. ABDOMINAL WALL: Within normal limits. RETROPERITONEUM: There is no lymphadenopathy. BLADDER: No wall thickening or mass. REPRODUCTIVE: Within normal limits. INGUINAL: There is no lymphadenopathy or hernia. MUSCULOSKELETAL: Within normal limits for patient age. CONCLUSION: 1. Bilateral, multiple nonobstructing punctate renal calculi. 2. No ureteric stones to explain current clinical symptoms. No hydronephrosis or nephrolithiasis. 3. Mild diverticular disease of the sigmoid without diverticulitis. Ant Castañeda MD on April 13, 2017 at 21:35 Board Certified Radiologist. This report was verified electronically.
[2017-04-13 21:46] VITALS: BP 152/83; TEMP 98.4
== END 2017-04-13 22:02 | disposition home or self-care (01) ==
LOC: PHED 18:29
DX: R31.9 Hematuria, unspecified (principal); R10.31 Right lower quadrant pain; I10 Essential (primary) hypertension; E78.00 Pure hypercholesterolemia, unspecified; Z86.59 Personal history of other mental and behavioral disorders; Z86.79 Personal history of other diseases of the circulatory system; Z87.442 Personal history of urinary calculi
CPT/HCPCS: 74176; 80053; 81001; 83690; 85025; 96360; 99285; J7030

== ENCOUNTER 2017-09-24 21:38 | Emergency (ER) | payer OTHER ==
[~2017-09-24] VITALS: Ht 172.7 cm; Wt 82.4 kg
[~2017-09-24 21:38] MED LIST changes: +AMLO5TAB2 PO; -AMOX500C PO; +ASPI1TAB57 PO; -BUSP10TA PO; -LISI-515 PO; -LORA-392 PO; +METO1TAB9 PO; +NITR1CAP36 PO; -PRED10 PO; +SERT-132 PO
[2017-09-24 21:45] VITALS: BP 166/86; PULSE 107; RESP 16; TEMP 99.4; O2SAT 98
[2017-09-24 22:29] VITALS: BP 154/98; PULSE 92; RESP 20; TEMP 99; O2SAT 100
== END 2017-09-24 22:55 | disposition left against medical advice (07) ==
LOC: PHED 21:38
DX: R42 Dizziness and giddiness (principal); Z53.21 Procedure and treatment not carried out due to patient leaving prior to being seen by health care provider
CPT/HCPCS: 99281

== ENCOUNTER 2017-10-13 07:19 | Emergency (ER) | payer OTHER ==
[~2017-10-13] VITALS: Ht 162.6 cm; Wt 67.3 kg
[2017-10-13 07:20] VITALS: BP 153/72; PULSE 99; RESP 18; TEMP 97.8; O2SAT 97
[2017-10-13] MEDS ORDERED: LACTTAB8 PO (07:35)
[2017-10-13] MEDS ORDERED: SODIUM CHLORIDE 0.9% FLUSH 10 ML FLUSH IVF PRN (07:45)
[2017-10-13] MEDS ORDERED: SODIUM CHLOR 0.9% 1000 ML INJ 1,000 ML IV ONE (07:45)
--- NOTE | 2017-10-13 07:52 | PD ---
HPI Chief Complaint: Cardiac Complaint Time Seen by Provider: 07:31 Travel History International Travel<30 days: No Contact w/Intl Traveler<30days: No Traveled to known affect area: No History of Present Illness HPI Patient is a 72-year-old female who presents the emergency room with complaints of palpitations. Patient reports that she was concerned that she began to have palpitations last night after eating high salt meal at a friend's house. Patient reports that she and her noticed that the meal was very salty as both her mouth and her 's mouth were really dry and they were both "really thirsty." Patient reports that she went home from dinner and began having palpitations. Patient did take her heart rate which was in the 110s, reports that her blood pressure was also elevated with systolic blood pressure in the 160s. Patient reports that she has history of palpitations and is prescribed metoprolol for this, patient did take her 25 mg dose of metoprolol at nighttime and felt better afterwards. Patient reports that this morning, she had an episode of palpitation which lasted a few minutes, reports that she did have resolution of palpitations after she took her 25 mg dose of metoprolol. Patient reports that for the past year, she has been having problems with palpitations, reports that her portable track line marker put her on metoprolol 25 mg twice daily for this reason. Reports that her portable track line marker is Dr. Nuñez, reports that he is unable to provide a reason why she is having these palpitations. Patient reports that she is also taking amlodipine at nighttime for her hypertension, reports concerns that this is making her feel lightheaded. Patient reports that she has also been having problems with lightheadedness over the past year, reports that she was initially on lisinopril which she thought was giving her this lightheaded sensation, reports that she was switched from lisinopril to amlodipine and patient is concerned that amlodipine is making her feel lightheaded. Patient reports that for the past year, she has been having intermittent episodes of lightheaded sensation, reports that sensation does not last a long time and can happen sporadically, reports that nothing makes her symptoms better or worse. Patient has follow-up with her primary care doctor as well as her portable track line marker recently for this, reports that she was told that her blood pressure medications can cause her to have a lightheaded sensation. Reports that no medications were changed, except the time of the medication were changed by her primary care doctor recently. She reports that she was initially supposed to take metoprolol 50 mg in the morning, she has been taking half a dose in the morning and half at nighttime which seems to help with her palpitations but not her lightheadedness. Patient denies any dizziness, denies any headache, denies any vision changes. Patient denies any chest pain or shortness of breath at this time. Patient denies any palpitations at this time -she is completely symptom-free, denies any chest pain or shortness of breath, patient reports that she is extremely anxious as her primary care doctor as well as her portable track line marker cannot tell her why she is having intermittent episodes of palpitations and lightheadedness. PFSH Past Medical History Anxiety: Yes Cardiovascular Problems: Yes (HTN) High Cholesterol: Yes Diminished Hearing: No Hypertension: Yes Kidney Stones: Yes Immunizations Current: Yes ([id number]) Influenza Vaccination: Yes ?: Not Menopausal: Yes : 2 Para: 2 Tubal Ligation: Yes Past Surgical History Section: Yes (X's 2) Gynecologic Surgery: Yes (SEE ABOVE) Other Surgery: Yes (RIGHT EAR PINNED BACK, BLEPHERECTOMY: BILATERAL) Social History Alcohol Use: No Tobacco Use: No Substance Use: No Allergies-Medications (Allergen,Severity, Reaction): Coded Allergies: lisinopril (Verified Allergy, Intermediate, Fatigue, 10/13/17) alendronate sodium (Verified Adverse Reaction, Unknown, Nausea/Vomiting, ) Reported Meds & Prescriptions Reported Meds & Active Scripts Active Reported Lactobacillus Acidophilus 1 Billion Cell Tab 1 Tab PO HS Metoprolol Succinate ER 24 HR (Metoprolol Succinate) 50 Mg Tab 50 Mg PO BID Amlodipine (Amlodipine Besylate) 5 Mg Tab 5 Mg PO HS Calcium (Calcium Carbonate) 600 Mg Tab 1 Tab PO BID B12 (Cyanocobalamin) 1,000 Mcg Tab 1 Tab PO DIRECTED Vitamin D3 (Cholecalciferol) 1,000 Unit Tab 2,000 Units PO DIRECTED Pravastatin 20 Mg Tab 20 Mg PO HS Review of Systems General / Constitutional: No: Fever Eyes: No: Visual changes HENT: Positive: Lightheadedness, No: Headaches, Vertigo, Neck Pain Cardiovascular: Positive: Palpitations, Irregular Rhythm, No: Chest Pain or Discomfort Respiratory: No: Shortness of Breath Gastrointestinal: No: Abdominal Pain Genitourinary: No: Dysuria Musculoskeletal: No: Pain Skin: No Rash Neurologic: No: Weakness, Dizziness Psychiatric: Positive: Anxiety, No: Depression Endocrine: No: Polydipsia Hematologic/Lymphatic: No: Easy Bruising Physical Exam Narrative GENERAL: No acute distress, nontoxic SKIN: Focused skin assessment warm/dry. HEAD: Atraumatic. Normocephalic. EYES: Pupils equal and round. No scleral icterus. No injection or drainage. ENT: No nasal bleeding or discharge. Mucous membranes pink and moist. NECK: Trachea midline. No JVD. CARDIOVASCULAR: Regular rate and rhythm. No murmur appreciated. RESPIRATORY: No accessory muscle use. Clear to auscultation. Breath sounds equal bilaterally. GASTROINTESTINAL: Abdomen soft, non-tender, nondistended. Hepatic and splenic margins not palpable. MUSCULOSKELETAL: No obvious deformities. No clubbing. No cyanosis. No edema. NEUROLOGICAL: Awake and alert. No obvious cranial nerve deficits. Motor grossly within normal limits. Normal speech. PSYCHIATRIC: Anxious mood and affect; insight and judgment normal. Data Data Last Documented VS Vital Signs Date Time Temp Pulse Resp B/P (MAP) Pulse Ox O2 Delivery O2 Flow Rate FiO2 10/13/17 08:54 10/13/17 08:41 76 10/13/17 07:59 16 16 16 10/13/17 07:20 97.8 97 Orders Orders B-Type Natriuretic Peptide (10/13/17 07:41) Ckmb (Isoenzyme) Profile (10/13/17 07:41) Complete Blood Count With Diff (10/13/17 07:41) Comprehensive Metabolic Panel (10/13/17 07:41) Magnesium (Mg) (10/13/17 07:41) Prothrombin Time / Inr (Pt) (10/13/17 07:41) Act Partial Throm Time (Ptt) (10/13/17 07:41) Troponin I (10/13/17 07:41) Chest, Single Ap (10/13/17 07:41) Ecg Monitoring (10/13/17 07:41) Iv Access Insert/Monitor (10/13/17 07:41) Oximetry (10/13/17 07:41) Sodium Chloride 0.9% Flush (Ns Flush) (10/13/17 07:45) Thyroid Stimulating Hormone (10/13/17 07:41) Orthostatic Vital Signs (10/13/17 07:41) Sodium Chlor 0.9% 1000 Ml Inj (Ns 1000 M (10/13/17 07:45) Electrocardiogram (10/13/17 ) Labs Laboratory Tests Test 10/13/17 07:45 White Blood Count 12.2 TH/MM3 Red Blood Count 4.86 MIL/MM3 Hemoglobin 14.7 GM/DL Hematocrit 44.5 % Mean Corpuscular Volume 91.7 FL Mean Corpuscular Hemoglobin 30.3 PG Mean Corpuscular Hemoglobin Concent 33.1 % Red Cell Distribution Width 12.2 % Platelet Count 249 TH/MM3 Mean Platelet Volume 7.8 FL Neutrophils (%) (Auto) 86.7 % Lymphocytes (%) (Auto) 5.2 % Monocytes (%) (Auto) 5.8 % Eosinophils (%) (Auto) 0.5 % Basophils (%) (Auto) 1.8 % Neutrophils # (Auto) 10.6 TH/MM3 Lymphocytes # (Auto) 0.6 TH/MM3 Monocytes # (Auto) 0.7 TH/MM3 Eosinophils # (Auto) 0.1 TH/MM3 Basophils # (Auto) 0.2 TH/MM3 CBC Comment DIFF FINAL Differential Comment Prothrombin Time 11.4 SEC Prothromb Time International Ratio 1.1 RATIO Activated Partial Thromboplast Time 26.6 SEC Blood Urea Nitrogen 12 MG/DL Creatinine 0.58 MG/DL Random Glucose 110 MG/DL Total Protein 7.6 GM/DL Albumin 4.1 GM/DL Calcium Level 8.8 MG/DL Magnesium Level 2.1 MG/DL Alkaline Phosphatase 33 U/L Aspartate Amino Transf (AST/SGOT) 12 U/L Alanine Aminotransferase (ALT/SGPT) 18 U/L Total Bilirubin 0.7 MG/DL Sodium Level 139 MEQ/L Potassium Level 3.6 MEQ/L Chloride Level 107 MEQ/L Carbon Dioxide Level 24.6 MEQ/L Anion Gap 7 MEQ/L Estimat Glomerular Filtration Rate 102 ML/MIN Total Creatine Kinase 56 U/L Troponin I LESS THAN 0.02 NG/ML B-Type Natriuretic Peptide 6 PG/ML Thyroid Stimulating Hormone 3rd Gen 0.832 uIU/ML MDM Medical Decision Making Medical Screen Exam Complete: Yes Emergency Medical Condition: Yes Medical Record Reviewed: Yes Interpretation(s) EKG at 0729: NSR at 93bpm, qt/qtc: 351/401, no acute st or t wave changes Vital Signs Date Time Temp Pulse Resp B/P (MAP) Pulse Ox O2 Delivery O2 Flow Rate FiO2 10/13/17 07:30 85 10/13/17 07:20 97.8 99 18 153/72 (99) 97 Differential Diagnosis ACS, arrhythmia, PE, abnormal TSH, electrolyte abnormalities, anxiety reaction, orthostatic hypotension Narrative Course Patient is a 72-year-old female who presents the emergency room with complaints of palpitations and lightheadedness. Patient reports that palpitations began last night after she had a meal which was full of salt, reports that she had an episode of palpitations this morning, reports that symptoms have currently resolved.. Patient reports that for the past year, she has felt intermittently lightheaded -reports that her primary care doctor as well as her portable track line marker cannot help her with this problem and patient requests answers. She currently is not lightheaded at this time. Patient is symptom-free with no complaints During the course of the patients emergency department visit, the patients history, examination, and differential diagnosis were reviewed with the patient. The patient was placed on a property assessment monitor with oximetry and frequent blood pressure monitoring. The patient had an IV access obtained and blood work sent for analysis. The patient was initially provided IV fluid The patients laboratory studies were reviewed and remarkable for: Laboratory Tests Test 10/13/17 07:45 White Blood Count 12.2 TH/MM3 (4.0-11.0) Red Blood Count 4.86 MIL/MM3 (4.00-5.30) Hemoglobin 14.7 GM/DL (11.6-15.3) Hematocrit 44.5 % (35.0-46.0) Mean Corpuscular Volume 91.7 FL (80.0-100.0) Mean Corpuscular Hemoglobin 30.3 PG (27.0-34.0) Mean Corpuscular Hemoglobin Concent 33.1 % (32.0-36.0) Red Cell Distribution Width 12.2 % (11.6-17.2) Platelet Count 249 TH/MM3 (150-450) Mean Platelet Volume 7.8 FL (7.0-11.0) Neutrophils (%) (Auto) 86.7 % (16.0-70.0) Lymphocytes (%) (Auto) 5.2 % (9.0-44.0) Monocytes (%) (Auto) 5.8 % (0.0-8.0) Eosinophils (%) (Auto) 0.5 % (0.0-4.0) Basophils (%) (Auto) 1.8 % (0.0-2.0) Neutrophils # (Auto) 10.6 TH/MM3 (1.8-7.7) Lymphocytes # (Auto) 0.6 TH/MM3 (1.0-4.8) Monocytes # (Auto) 0.7 TH/MM3 (0-0.9) Eosinophils # (Auto) 0.1 TH/MM3 (0-0.4) Basophils # (Auto) 0.2 TH/MM3 (0-0.2) CBC Comment DIFF FINAL Differential Comment Prothrombin Time 11.4 SEC (9.8-11.6) Prothromb Time International Ratio 1.1 RATIO Activated Partial Thromboplast Time 26.6 SEC (24.3-30.1) Blood Urea Nitrogen 12 MG/DL (7-18) Creatinine 0.58 MG/DL (0.50-1.00) Random Glucose 110 MG/DL (74-106) Total Protein 7.6 GM/DL (6.4-8.2) Albumin 4.1 GM/DL (3.4-5.0) Calcium Level 8.8 MG/DL (8.5-10.1) Magnesium Level 2.1 MG/DL (1.5-2.5) Alkaline Phosphatase 33 U/L (45-117) Aspartate Amino Transf (AST/SGOT) 12 U/L (15-37) Alanine Aminotransferase (ALT/SGPT) 18 U/L (10-53) Total Bilirubin 0.7 MG/DL (0.2-1.0) Sodium Level 139 MEQ/L (136-145) Potassium Level 3.6 MEQ/L (3.5-5.1) Chloride Level 107 MEQ/L (98-107) Carbon Dioxide Level 24.6 MEQ/L (21.0-32.0) Anion Gap 7 MEQ/L (5-15) Estimat Glomerular Filtration Rate 102 ML/MIN (>89) Total Creatine Kinase 56 U/L (26-192) Troponin I LESS THAN 0.02 NG/ML B-Type Natriuretic Peptide 6 PG/ML (0-100) Thyroid Stimulating Hormone 3rd Gen 0.832 uIU/ML (0.358-3.740) Radiology studies were reviewed and remarkable for Last Impressions Chest X-Ray 10/13/17 0741 Signed Impressions: CONCLUSION: No acute cardiopulmonary disease Labs reviewed, TSH 0.832, troponin less than 0.02, orthostatic vital signs were negative. Patient with no chest pain or shortness of breath, complaining of palpitations intermittently as well as lightheadedness for the past year, there are no obvious explanations for her symptoms today, she has been taking metoprolol for palpitations and amlodipine for hypertension. Discussed with her need to follow-up with her portable track line marker for further workup of her lightheadedness as well as her palpitations. Patient is safe to be discharged to home as she suffers no emergencies at this time requiring admission to the hospital. Patient feels comfortable with her discharge instructions, she will return to the emergency room as needed. Diagnosis Primary Impression: Heart palpitations Patient Instructions: General Instructions Additional Instructions: Please provide patient with a copy of their lab work and studies at discharge* * Please follow up with your primary care doctor in 2-3 days Return to the ER if symptoms worsen or progress Return to the ER as needed Please keep diary of your heart rate as well as her blood pressures and bring this to your cardiology follow-up appointment Disposition: 01 DISCHARGE HOME Condition: Stable Brisa Morales DO October 13, 2017 07:52
[2017-10-13 07:59] VITALS: BP_SYST 125; BP_SYST 134; BP_SYST 148; BP_DIAS 69; BP_DIAS 70; BP_DIAS 76; RESP 16
[2017-10-13 08:01] LABS: AUTOMATED NEUTROPHIL # 10.6 TH/MM3 (1.8-7.7); BASOPHIL # 0.2 TH/MM3 (0-0.2); BASOPHIL % 1.8 % (0.0-2.0); EOSINOPHIL # 0.1 TH/MM3 (0-0.4); EOSINOPHIL % 0.5 % (0.0-4.0); HEMATOCRIT 44.5 % (35.0-46.0); HEMOGLOBIN 14.7 GM/DL (11.6-15.3); LYMPH % 5.2 % (9.0-44.0); LYMPHOCYTE # 0.6 TH/MM3 (1.0-4.8); MEAN CELL VOLUME 91.7 FL (80.0-100.0); MEAN CORPUSCULAR HEMOGLOBIN 30.3 PG (27.0-34.0); MEAN CORPUSCULAR HGB CONC 33.1 % (32.0-36.0); MEAN PLATELET VOLUME 7.8 FL (7.0-11.0); MONO % 5.8 % (0.0-8.0); MONOCYTE # 0.7 TH/MM3 (0-0.9); NEUT % 86.7 % (16.0-70.0); PLATELET COUNT 249 TH/MM3 (150-450); RED BLOOD COUNT 4.86 MIL/MM3 (4.00-5.30); RED CELL DISTRIBUTION WIDTH 12.2 % (11.6-17.2); WHITE BLOOD COUNT 12.2 TH/MM3 (4.0-11.0)
[2017-10-13 08:05] LABS: CHLORIDE 107 MEQ/L (98-107); SODIUM (NA) 139 MEQ/L (136-145)
[2017-10-13 08:08] LABS: ALBUMIN 4.1 GM/DL (3.4-5.0); BICARBONATE 24.6 MEQ/L (21.0-32.0); BLOOD UREA NITROGEN 12 MG/DL (7-18); CALCIUM 8.8 MG/DL (8.5-10.1); GLUCOSE,RANDOM 110 MG/DL (74-106); MAGNESIUM 2.1 MG/DL (1.5-2.5)
[2017-10-13 08:09] LABS: INTERNATIONAL NORMALIZED RATIO 1.1 RATIO; PROTHROMBIN TIME - PATIENT 11.4 SEC (9.8-11.6)
[2017-10-13 08:11] LABS: ALT (GPT) 18 U/L (10-53); AST (GOT) 12 U/L (15-37)
[2017-10-13 08:12] LABS: CREATININE 0.58 MG/DL (0.50-1.00); GLOMERULAR FILTRATION RATE 102 ML/MIN (>89)
[2017-10-13 08:13] LABS: TOTAL BILIRUBIN ADULT 0.7 MG/DL (0.2-1.0); TOTAL PROTEIN 7.6 GM/DL (6.4-8.2)
[2017-10-13 08:14] LABS: ALKALINE PHOSPHATASE 33 U/L (45-117)
[2017-10-13 08:17] LABS: TROPONIN I LESS THAN 0.02 NG/ML (0.02-0.05)
--- NOTE | 2017-10-13 08:22 | RADRPT ---
EXAM DATE: 10/13/2017 8:12 AM EDT AGE/SEX: 72 years / Female INDICATIONS: High blood pressure, lightheaded. CLINICAL DATA: This is the patient's initial encounter. Patient reports that signs and symptoms have been present for 2 days and indicates a pain score of 0/10. MEDICAL/SURGICAL HISTORY: Hypertension. None. COMPARISON: . FINDINGS: A single AP view of the chest demonstrates the lungs to be symmetrically aerated without evidence of mass, infiltrate or effusion. The cardiomediastinal contours are unremarkable. Osseous structures a re intact. CONCLUSION: No acute cardiopulmonary disease Electronically signed by: Drew Haas MD 10/13/2017 8:21 AM EDT
--- NOTE | 2017-10-13 14:06 | EKG ---
Date Performed: 10/13/2017 Time Performed: 07:29:52 PTAGE: 72 years EKG: Sinus rhythm NORMAL ECG PREVIOUS TRACING : 02/16/2017 20.55 Since the previous tracing, no significant change noted DOCTOR: Geoffrey Lopez Interpretating Date/Time 10/16/2017 08:14:11
== END 2017-10-13 09:05 | disposition home or self-care (01) ==
LOC: PHED 07:19
DX: R00.2 Palpitations (principal); R42 Dizziness and giddiness; F41.9 Anxiety disorder, unspecified; I10 Essential (primary) hypertension; E78.00 Pure hypercholesterolemia, unspecified; Z87.442 Personal history of urinary calculi; Z79.899 Other long term (current) drug therapy; Z88.8 Allergy status to other drugs, medicaments and biological substances
CPT/HCPCS: 71045; 80053; 82550; 83735; 83880; 84443; 84484; 85025; 85610; 85730; 93005; 96360; 99285; J7030

== ENCOUNTER 2017-10-20 07:05 | Emergency (ER) | payer OTHER ==
[~2017-10-20] VITALS: Ht 162.6 cm; Wt 68.0 kg
[~2017-10-20 07:05] MED LIST changes: -ASPI1TAB57 PO; -LACTCAP8 PO; +LACTTAB8 PO; -NITR1CAP36 PO; -SERT-132 PO
[2017-10-20 07:11] VITALS: BP 137/72; PULSE 92; RESP 16; TEMP 98.4; O2SAT 97
[2017-10-20] MEDS ORDERED: DILT120T PO (07:43)
--- NOTE | 2017-10-20 07:52 | PD ---
HPI Chief Complaint: Dizziness Time Seen by Provider: 07:23 Travel History International Travel<30 days: No Contact w/Intl Traveler<30days: No Traveled to known affect area: No History of Present Illness HPI 72-year-old female is complaining of vertigo. She has been having trouble with lightheadedness for some time. She does have a history of hypertension and has been on different medications. She was on lisinopril and thought that was causing her lightheadedness so she stopped it and seemed better for a little while but then her blood pressure came back. She has been on metoprolol and amlodipine. Her doctor stopped these medications recently and restarted her on diltiazem which she took for the first time last night. She says that when she woke up this morning he had a fairly sudden onset of vertigo. She has tinnitus. She has had tinnitus for about 4 years. She does not have double vision. She is nauseated. She has no weakness of the extremities PFSH Past Medical History Anxiety: Yes Cardiovascular Problems: Yes (HTN) High Cholesterol: Yes Diminished Hearing: No Hypertension: Yes Kidney Stones: Yes Medical other: Yes (hx of dizziness/vertigo?) Immunizations Current: Yes (SHINGLES 2015) Tetanus Vaccination: < 5 Years Influenza Vaccination: Yes ?: Not Menopausal: Yes : 2 Para: 2 Tubal Ligation: Yes Past Surgical History Section: Yes (X's 2) Gynecologic Surgery: Yes (SEE ABOVE) Other Surgery: Yes (RIGHT EAR PINNED BACK, BLEPHERECTOMY: BILATERAL) Social History Alcohol Use: No Tobacco Use: No Substance Use: No Allergies-Medications (Allergen,Severity, Reaction): Coded Allergies: lisinopril (Verified Allergy, Intermediate, Fatigue, 10/20/17) alendronate sodium (Verified Adverse Reaction, Unknown, Nausea/Vomiting, ) Reported Meds & Prescriptions Reported Meds & Active Scripts Active Reported Diltiazem (Diltiazem HCl) 120 Mg Tab 120 Mg PO DAILY Lactobacillus Acidophilus 1 Billion Cell Tab 1 Tab PO HS Calcium (Calcium Carbonate) 600 Mg Tab 1 Tab PO BID B12 (Cyanocobalamin) 1,000 Mcg Tab 1 Tab PO DIRECTED Vitamin D3 (Cholecalciferol) 1,000 Unit Tab 2,000 Units PO DIRECTED Pravastatin 20 Mg Tab 20 Mg PO HS Review of Systems Except as stated in HPI: all other systems reviewed are Neg General / Constitutional: No: Fever, Chills Eyes: No: Diploplia, Blurred Vision HENT: Positive: Vertigo, No: Headaches Cardiovascular: No: Chest Pain or Discomfort, Palpitations Respiratory: No: Cough, Shortness of Breath Gastrointestinal: No: Nausea, Vomiting Genitourinary: No: Urgency, Frequency Musculoskeletal: No: Myalgias Skin: No Rash, No Itching Neurologic: Positive: Weakness Endocrine: No: Heat Intolerance, Cold Intolerance Hematologic/Lymphatic: No: Easy Bruising Physical Exam Narrative GENERAL: Well-developed female SKIN: Focused skin assessment warm/dry. HEAD: Atraumatic. Normocephalic. EYES: Pupils equal and round. No scleral icterus. No injection or drainage. There is nystagmus on leftward gaze ENT: No nasal bleeding or discharge. Mucous membranes pink and moist. NECK: Trachea midline. No JVD. CARDIOVASCULAR: Regular rate and rhythm. No murmur appreciated. RESPIRATORY: No accessory muscle use. Clear to auscultation. Breath sounds equal bilaterally. GASTROINTESTINAL: Abdomen soft, non-tender, nondistended. Hepatic and splenic margins not palpable. MUSCULOSKELETAL: No obvious deformities. No clubbing. No cyanosis. No edema. NEUROLOGICAL: Awake and alert. No obvious cranial nerve deficits. Motor grossly within normal limits. Normal speech. PSYCHIATRIC: Appropriate mood and affect; insight and judgment normal. Data Data Last Documented VS Vital Signs Date Time Temp Pulse Resp B/P (MAP) Pulse Ox O2 Delivery O2 Flow Rate FiO2 10/20/17 09:30 88 16 175/84 (114) 97 Room Air 10/20/17 07:11 98.4 Orders Orders Complete Blood Count With Diff (10/20/17 07:50) Basic Metabolic Panel (Bmp) (10/20/17 07:50) Ondansetron Odt (Zofran Odt) (10/20/17 08:00) Meclizine (Antivert) (10/20/17 08:00) Ct Brain W/O Iv Contrast(Rout) (10/20/17 09:06) Labs Laboratory Tests Test 10/20/17 08:15 White Blood Count 9.8 TH/MM3 Red Blood Count 4.89 MIL/MM3 Hemoglobin 14.1 GM/DL Hematocrit 44.6 % Mean Corpuscular Volume 91.2 FL Mean Corpuscular Hemoglobin 28.8 PG Mean Corpuscular Hemoglobin Concent 31.6 % Red Cell Distribution Width 12.1 % Platelet Count 200 TH/MM3 Mean Platelet Volume 7.9 FL Neutrophils (%) (Auto) 88.6 % Lymphocytes (%) (Auto) 5.3 % Monocytes (%) (Auto) 5.2 % Eosinophils (%) (Auto) 0.4 % Basophils (%) (Auto) 0.5 % Neutrophils # (Auto) 8.8 TH/MM3 Lymphocytes # (Auto) 0.5 TH/MM3 Monocytes # (Auto) 0.5 TH/MM3 Eosinophils # (Auto) 0.0 TH/MM3 Basophils # (Auto) 0.0 TH/MM3 CBC Comment DIFF FINAL Differential Comment Blood Urea Nitrogen 9 MG/DL Creatinine 0.56 MG/DL Random Glucose 112 MG/DL Calcium Level 9.3 MG/DL Sodium Level 139 MEQ/L Potassium Level 3.6 MEQ/L Chloride Level 106 MEQ/L Carbon Dioxide Level 24.9 MEQ/L Anion Gap 8 MEQ/L Estimat Glomerular Filtration Rate 107 ML/MIN [facility] Medical Decision Making Medical Screen Exam Complete: Yes Emergency Medical Condition: Yes Medical Record Reviewed: Yes Differential Diagnosis Differential includes vertigo, subdural, CVA Narrative Course Lab work is unremarkable. She was given Zofran and Antivert with some improvement. CT is negative. Patient is stable for discharge Diagnosis Primary Impression: Acute onset of severe vertigo Scripts Ondansetron Odt (Zofran Odt) 4 Mg Tab 4 MG SL Q6HR Y for Nausea/Vomiting, #15 TAB 0 Refills Prov: Víctor Salas MD 10/20/17 Meclizine (Meclizine) 12.5 Mg Tab 12.5 MG PO TID Y for VERTIGO, #20 TAB 0 Refills Prov: Víctor Salas MD 10/20/17 Disposition: 01 DISCHARGE HOME Condition: Stable Víctor Salas MD Oct 20, 2017 07:52
[2017-10-20] MEDS ORDERED: MECLIZINE HCL 25 MG TAB PO ONE (08:00)
[2017-10-20] MEDS ORDERED: ONDANSETRON ODT 4 MG TAB PO ONE (08:00)
[2017-10-20 08:15] VITALS: BP 137/75; PULSE 94; RESP 16; O2SAT 99
[2017-10-20 08:26] LABS: AUTOMATED NEUTROPHIL # 8.8 TH/MM3 (1.8-7.7); BASOPHIL % 0.5 % (0.0-2.0); EOSINOPHIL % 0.4 % (0.0-4.0); HEMATOCRIT 44.6 % (35.0-46.0); HEMOGLOBIN 14.1 GM/DL (11.6-15.3); LYMPH % 5.3 % (9.0-44.0); LYMPHOCYTE # 0.5 TH/MM3 (1.0-4.8); MEAN CELL VOLUME 91.2 FL (80.0-100.0); MEAN CORPUSCULAR HEMOGLOBIN 28.8 PG (27.0-34.0); MEAN CORPUSCULAR HGB CONC 31.6 % (32.0-36.0); MEAN PLATELET VOLUME 7.9 FL (7.0-11.0); MONO % 5.2 % (0.0-8.0); MONOCYTE # 0.5 TH/MM3 (0-0.9); NEUT % 88.6 % (16.0-70.0); PLATELET COUNT 200 TH/MM3 (150-450); RED BLOOD COUNT 4.89 MIL/MM3 (4.00-5.30); RED CELL DISTRIBUTION WIDTH 12.1 % (11.6-17.2); WHITE BLOOD COUNT 9.8 TH/MM3 (4.0-11.0)
[2017-10-20 08:28] LABS: CALCIUM 9.3 MG/DL (8.5-10.1)
[2017-10-20 08:29] LABS: BICARBONATE 24.9 MEQ/L (21.0-32.0)
[2017-10-20 08:32] LABS: CREATININE 0.56 MG/DL (0.50-1.00)
[2017-10-20 09:30] VITALS: BP 175/84; PULSE 88; RESP 16; O2SAT 97
--- NOTE | 2017-10-20 09:44 | RADRPT ---
EXAM DATE: 10/20/2017 9:35 AM EDT AGE/SEX: 72 years / Female INDICATIONS: Dizziness. CLINICAL DATA: This is the patient's initial encounter. Patient reports that signs and symptoms have been present for 2 days and indicates a pain score of 0/10. MEDICAL/SURGICAL HISTORY: Hypertension. Renal calculi. Tubal ligation. section. Right ea r pinned back. Bilateral blepherectomy. RADIATION DOSE: 50.45 CTDI (mGy) COMPARISON: No prior [facility] exams available for comparison. TECHNIQUE: CT of the head without contrast. Using automated exposure control and adjustment of the mA and/or kV according to patient size, radiation dose was kept as low as reasonably achievable to ob tain optimal diagnostic quality images. FINDINGS: Cerebrum: The ventricles are normal for age. No evidence of midline shift, mass lesion, hemorrhage or acute infarction. No extraaxial fluid collections are seen. Posterior Fossa: The cerebellum and brainstem are intact. The 4th ventricle is midline. The cerebe llopontine angle is unremarkable. Extracranial: The visualized portion of the orbits is intact. Right sphenoidal sinus disease Skull: The calvaria is intact. No evidence of skull fracture. CONCLUSION: 1. Negative CT Head non contrast except for benign-appearing sinus disease most prominent in the rig ht sphenoidal sinus. Electronically signed by: Rizwan Petersen MD 10/20/2017 9:43 AM EDT
[2017-10-20] MEDS ORDERED: MECL12.574 PO (09:59)
[2017-10-20] MEDS ORDERED: ZOFR4TAB3 SL (09:59)
== END 2017-10-20 10:17 | disposition home or self-care (01) ==
LOC: PHED 07:05
DX: R42 Dizziness and giddiness (principal); F41.9 Anxiety disorder, unspecified; I10 Essential (primary) hypertension; E78.00 Pure hypercholesterolemia, unspecified; Z87.442 Personal history of urinary calculi; Z79.899 Other long term (current) drug therapy; Z88.8 Allergy status to other drugs, medicaments and biological substances
CPT/HCPCS: 70450; 80048; 85025